=== PATIENT | male | born 1975 | race Caucasian/White ===

== ENCOUNTER 2016-04-10 23:26 | Emergency (ER) | payer OTHER ==
[~2016-04-10] VITALS: Ht 185.4 cm; Wt 70.5 kg
[~2016-04-10 23:26] MED LIST: AMBIEN 10MG10 MG PO; ANAPROX DS550 MG PO; CARAFATE1 GM/10 ML PO; CEFTIN250 MG PO; CELEBREX 200MG200 MG PO; CYCLOBENZAPRINE10 MG PO; DESYREL 100MG100 MG PO; DEXALONE30 MG PO; DEXILANT; DEXILANT60 MG PO; DOXYCYCLINE 10100 MG PO; DYNACIN50 M1 PO; FLEXERIL 1010 MG/TAB PO; FLOMAX 0.40.4 MG/CAP PO; IBUPAIN-200200 MG PO; IBUPROFEN; INDERAL40 MG PO; KAPIDEX; LEVAQUIN 750MG750 M1 PO; LORTAB 5/500 501 TAB PO; MOBIC 7.5MG7.5 MG PO; MULTI VITAMINS1 TAB PO; MULTIPLE VITAMI1 CAP PO; NEURONTIN300 MG/CAP PO; NEURONTIN600 MG/TAB PO; NEXIUM40 MG PO; NORCO 325 MG-101 TAB PO; NORCO 325 MG-51 TAB PO; PAIN RELIEF AD200 MG PO; PEPCID 20MG TAB20 MG PO; PERCOCET 325 MG1 TA2 PO; PERCOCET 5/321 UDTAB PO; PHENERGAN 25 TA25 MG PO; PHENERGAN25 MG RC; PREDNISONE10 MG; PRILOSEC 20MG20 MG PO; PROPRANOLOL HCL40 MG PO; PROSCAR 5MG5 MG PO; TEFLARO 60600 MG/VIA IV; TYLENOL 500MG500 MG PO; TYLENOL EXTRA500 M1 PO; TYLENOL PM; ULTRAM 50MG TAB50 MG PO; VICODIN PO; ZANTAC 7575 MG PO; ZOFRAN 4MG T4 MG/TAB PO; ZOFRAN ODT8 MG PO; ZOFRAN8 MG PO
[2016-04-10 23:35] VITALS: TEMP 98.8
[2016-04-11 00:09] LABS: BASO % 0.2 % (0.0-2.0); EOS # 0.6 (0.0-0.7); EOS % 2.9 % (0-4.0); GRAN # 12.9 (1.4-6.5); GRAN % 68.8 % (42.2-75.2); HEMOGLOBIN 12.2 g/dl (13.5-18.0); LYMPH # 4.1 (1.2-3.4); MEAN CELL VOLUME 102 fl (80.0-100.0); MEAN CORPUSCULAR HEMOGLOBIN 36 pg (27.0-31.0); MEAN CORPUSCULAR HGB CONC 35 g/dl (33.0-37.0); MEAN PLATELET VOLUME 9.2 fl (7.4-10.4); MONO # 1.1 (0.1-0.6); MONO % 5.7 % (1.7-9.3); PLATELET COUNT 301 K/mm3 (130-400); RED BLOOD COUNT 3.44 M/mm3 (4.20-5.60); REDCELL DISTRIBUTION WIDTH-CV 11.9 % (11.5-14.5); WHITE BLOOD COUNT 18.7 K/mm3 (4.8-10.8)
[2016-04-11 00:17] LABS: HEMATOCRIT 34.9 % (42.0-52.0)
[2016-04-11 00:36] LABS: ADJUSTED CALCIUM 9.7 mg/dL (8.4-10.2); ALANINE AMINOTRANSFERASE 26 U/L (21-72); ALBUMIN 3.5 gm/dL (3.5-5.0); ALKALINE PHOSPHATASE 58 U/L (50-136); ANION GAP 8 mmol/L (7-16); BILIRUBIN,TOTAL 0.7 mg/dL (0.0-1.0); BLOOD UREA NITROGEN 7 mg/dL (9-20); CALCIUM 9.3 mg/dL (8.4-10.2); CARBON DIOXIDE 27 mmol/L (22-30); CHLORIDE 105 mmol/L (98-107); GLUCOSE 104 mg/dL (74-106); POTASSIUM 3.5 mmol/L (3.4-5.0); SODIUM 140 mmol/L (137-145); TOTAL PROTEIN 6.5 gm/dL (6.4-8.2)
[2016-04-11 00:47] LABS: TROPONIN-I < 0.012 ng/mL (0.000-0.034)
[2016-04-11 01:49] LABS: PH 6 (5-8); SQUAMOUS EPITHELIAL 0-2 /hpf; URINE APPEARANCE Clear; URINE BACTERIA None Seen /hpf; URINE BILIRUBIN Negative (NEGATIVE); URINE BLOOD Negative (NEGATIVE); URINE COLOR Yellow; URINE GLUCOSE Negative (NEGATIVE); URINE KETONE Negative (NEGATIVE); URINE RBC None Seen /hpf; URINE UROBILINOGEN Negative (NEGATIVE); URINE WBC 0-2 /hpf
[2016-04-11 02:00] VITALS: PULSE 68
[2016-04-11] MEDS ORDERED: ALDACTONE50 MG PO (02:09)
[2016-04-11] MEDS ORDERED: PERCOCET 325 MG1 TA3 PO (02:10)
[2016-04-11 03:12] VITALS: BP 132/74
[2016-04-12] MEDS ORDERED: MOTRIN 800800 MG/TAB PO (22:05)
[2016-04-12] MEDS ORDERED: CEPHALEXIN500 M1 PO (23:46)
== END 2016-04-11 03:12 | disposition home or self-care (01) ==
LOC: COL.ER 23:26
PROVIDERS: Emergency Medicine
DX: G89.18 Other acute postprocedural pain (principal); Z90.79 Acquired absence of other genital organ(s); I45.10 Unspecified right bundle-branch block
CPT/HCPCS: J1170; J1885; J2550; J7030

== ENCOUNTER 2016-04-12 21:59 | Emergency (ER) | payer OTHER ==
[~2016-04-12] VITALS: Ht 193 cm; Wt 70.5 kg
[~2016-04-12 21:59] MED LIST changes: +ALDACTONE50 MG PO; +PERCOCET 325 MG1 TA3 PO
[2016-04-12 22:00] VITALS: TEMP 98.9
[2016-04-12] MEDS ORDERED: MOTRIN 800800 MG/TAB PO (22:05)
[2016-04-12 22:45] LABS: BASO % 0.3 % (0.0-2.0); EOS # 0.5 (0.0-0.7); EOS % 3.9 % (0-4.0); GRAN # 6.5 (1.4-6.5); GRAN % 55.2 % (42.2-75.2); HEMATOCRIT 31.6 % (42.0-52.0); HEMOGLOBIN 10.9 g/dl (13.5-18.0); LYMPH # 3.8 (1.2-3.4); LYMPH % 32.8 % (20.0-51.0); MEAN CELL VOLUME 102 fl (80.0-100.0); MEAN CORPUSCULAR HEMOGLOBIN 35 pg (27.0-31.0); MEAN CORPUSCULAR HGB CONC 35 g/dl (33.0-37.0); MONO # 0.9 (0.1-0.6); MONO % 7.6 % (1.7-9.3); PLATELET COUNT 283 K/mm3 (130-400); RED BLOOD COUNT 3.11 M/mm3 (4.20-5.60); REDCELL DISTRIBUTION WIDTH-CV 11.8 % (11.5-14.5); WHITE BLOOD COUNT 11.7 K/mm3 (4.8-10.8)
[2016-04-12 22:58] LABS: ADJUSTED CALCIUM 9.8 mg/dL (8.4-10.2); ALANINE AMINOTRANSFERASE 29 U/L (21-72); ALBUMIN 3.2 gm/dL (3.5-5.0); ALKALINE PHOSPHATASE 45 U/L (50-136); ANION GAP 6 mmol/L (7-16); BILIRUBIN,TOTAL 0.6 mg/dL (0.0-1.0); BLOOD UREA NITROGEN 7 mg/dL (9-20); CALCIUM 9.2 mg/dL (8.4-10.2); CARBON DIOXIDE 26 mmol/L (22-30); CHLORIDE 102 mmol/L (98-107); CREATININE, serum 1.08 mg/dL (0.66-1.25); GLUCOSE 88 mg/dL (74-106); POTASSIUM 3.6 mmol/L (3.4-5.0); SODIUM 134 mmol/L (137-145)
[2016-04-12 23:04] LABS: C-REACTIVE PROTEIN < 0.5 mg/dL (0.0-0.9)
[2016-04-12] MEDS ORDERED: CEPHALEXIN500 M1 PO (23:46)
[2016-04-12 23:54] VITALS: BP 124/60; PULSE 82
== END 2016-04-12 23:57 | disposition home or self-care (01) ==
LOC: COL.ER 21:59
PROVIDERS: Nurse Practitioner
DX: G89.18 Other acute postprocedural pain (principal); Z90.79 Acquired absence of other genital organ(s)
CPT/HCPCS: J2270; J2550; J7030

== ENCOUNTER 2016-06-07 23:56 | Emergency (ER) | payer OTHER ==
[~2016-06-07] VITALS: Ht 193 cm; Wt 72.7 kg
[~2016-06-07 23:56] MED LIST changes: +CEPHALEXIN500 M1 PO; +MOTRIN 800800 MG/TAB PO
[2016-06-08] MEDS ORDERED: ZANTAC 7575 MG PO (00:07)
[2016-06-08 00:29] VITALS: TEMP 98.1
[2016-06-08 00:42] LABS: BASO # 0.1 (0.0-0.2); BASO % 0.5 % (0.0-2.0); EOS # 0.3 (0.0-0.7); EOS % 2.8 % (0-4.0); GRAN # 4.2 (1.4-6.5); GRAN % 43.3 % (42.2-75.2); HEMOGLOBIN 12.1 g/dl (13.5-18.0); LYMPH # 4.4 (1.2-3.4); LYMPH % 45.5 % (20.0-51.0); MEAN CELL VOLUME 100 fl (80.0-100.0); MEAN CORPUSCULAR HEMOGLOBIN 35 pg (27.0-31.0); MEAN CORPUSCULAR HGB CONC 35 g/dl (33.0-37.0); MEAN PLATELET VOLUME 9.2 fl (7.4-10.4); MONO # 0.8 (0.1-0.6); MONO % 7.7 % (1.7-9.3); PLATELET COUNT 272 K/mm3 (130-400); RED BLOOD COUNT 3.49 M/mm3 (4.20-5.60); REDCELL DISTRIBUTION WIDTH-CV 11.8 % (11.5-14.5); WHITE BLOOD COUNT 9.7 K/mm3 (4.8-10.8)
[2016-06-08 00:45] LABS: HEMATOCRIT 34.9 % (42.0-52.0)
[2016-06-08 00:48] LABS: PH 6 (5-8); SQUAMOUS EPITHELIAL 0-2 /hpf; URINE APPEARANCE Clear; URINE BACTERIA None Seen /hpf; URINE BILIRUBIN Negative (NEGATIVE); URINE BLOOD Negative (NEGATIVE); URINE COLOR Straw; URINE GLUCOSE Negative (NEGATIVE); URINE KETONE Negative (NEGATIVE); URINE RBC 0-2 /hpf; URINE UROBILINOGEN Negative (NEGATIVE); URINE WBC 0-2 /hpf
[2016-06-08 00:52] LABS: ADJUSTED CALCIUM 9.4 mg/dL (8.4-10.2); ALBUMIN 3.2 gm/dL (3.5-5.0); BILIRUBIN,TOTAL 0.6 mg/dL (0.0-1.0); CALCIUM 8.8 mg/dL (8.4-10.2); POTASSIUM 3.6 mmol/L (3.4-5.0)
[2016-06-08] MEDS ORDERED: ULTRAM 50MG TAB50 MG PO (02:25)
[2016-06-08] MEDS ORDERED: PHENERGAN 25 TA25 MG PO (02:26)
[2016-06-08 02:36] VITALS: BP 106/65; PULSE 62
== END 2016-06-08 03:11 | disposition home or self-care (01) ==
LOC: COL.ER 23:56
PROVIDERS: Emergency Medicine
DX: E86.9 Volume depletion, unspecified (principal); R10.13 Epigastric pain; R10.31 Right lower quadrant pain; R10.32 Left lower quadrant pain; R11.10 Vomiting, unspecified; R19.7 Diarrhea, unspecified
CPT/HCPCS: J1170; J2405; J2550; J7030

== ENCOUNTER 2016-07-12 22:40 | Emergency (ER) | payer OTHER ==
[~2016-07-12] VITALS: Ht 193 cm; Wt 72.7 kg
[2016-07-12 22:46] VITALS: TEMP 98.2
[2016-07-12] MEDS ORDERED: ZANTAC 7575 MG PO (22:49)
[2016-07-12 23:21] LABS: BASO # 0.1 (0.0-0.2); BASO % 0.5 % (0.0-2.0); EOS # 0.5 (0.0-0.7); GRAN % 43.4 % (42.2-75.2); HEMATOCRIT 33.3 % (42.0-52.0); HEMOGLOBIN 11.6 g/dl (13.5-18.0); LYMPH % 42.9 % (20.0-51.0); MEAN CELL VOLUME 100 fl (80.0-100.0); MEAN CORPUSCULAR HEMOGLOBIN 35 pg (27.0-31.0); MEAN CORPUSCULAR HGB CONC 35 g/dl (33.0-37.0); MEAN PLATELET VOLUME 9.3 fl (7.4-10.4); MONO # 0.8 (0.1-0.6); MONO % 8.1 % (1.7-9.3); PLATELET COUNT 273 K/mm3 (130-400); RED BLOOD COUNT 3.33 M/mm3 (4.20-5.60); WHITE BLOOD COUNT 9.2 K/mm3 (4.8-10.8)
[2016-07-12 23:32] LABS: ADJUSTED CALCIUM 9.5 mg/dL (8.4-10.2); ALBUMIN 3.4 gm/dL (3.5-5.0); BILIRUBIN,TOTAL 0.6 mg/dL (0.0-1.0); CREATININE, serum 0.9 mg/dL (0.66-1.25); POTASSIUM 3.8 mmol/L (3.4-5.0); TOTAL PROTEIN 6.1 gm/dL (6.4-8.2)
[2016-07-13 01:17] LABS: PH 6 (5-8); SQUAMOUS EPITHELIAL 0-2 /hpf; URINE APPEARANCE Clear; URINE BACTERIA None Seen /hpf; URINE BILIRUBIN Negative (NEGATIVE); URINE BLOOD Negative (NEGATIVE); URINE COLOR Yellow; URINE GLUCOSE Negative (NEGATIVE); URINE KETONE Negative (NEGATIVE); URINE RBC None Seen /hpf; URINE UROBILINOGEN Negative (NEGATIVE); URINE WBC 0-2 /hpf
[2016-07-13 02:02] VITALS: BP 105/67; PULSE 62
== END 2016-07-13 02:15 | disposition home or self-care (01) ==
LOC: COL.ER 22:40
PROVIDERS: Emergency Medicine
DX: R10.31 Right lower quadrant pain (principal); R29.898 Other symptoms and signs involving the musculoskeletal system; R11.0 Nausea; K21.9 Gastro-esophageal reflux disease without esophagitis; G43.909 Migraine, unspecified, not intractable, without status migrainosus; G89.29 Other chronic pain; M25.561 Pain in right knee; M25.551 Pain in right hip; Z79.891 Long term (current) use of opiate analgesic
CPT/HCPCS: J1170; J1885; J2550; J3010; J7030

== ENCOUNTER 2016-07-13 20:53 | Emergency (ER) | payer OTHER ==
[~2016-07-13] VITALS: Ht 193 cm; Wt 72.7 kg
[2016-07-13 20:58] VITALS: TEMP 98
[2016-07-13 21:36] LABS: BASO # 0.1 (0.0-0.2); BASO % 0.7 % (0.0-2.0); EOS # 0.7 (0.0-0.7); EOS % 7.5 % (0-4.0); GRAN # 4.3 (1.4-6.5); GRAN % 45.2 % (42.2-75.2); LYMPH # 3.7 (1.2-3.4); LYMPH % 39.2 % (20.0-51.0); MEAN CELL VOLUME 102 fl (80.0-100.0); MEAN CORPUSCULAR HGB CONC 34 g/dl (33.0-37.0); MEAN PLATELET VOLUME 9.1 fl (7.4-10.4); MONO # 0.7 (0.1-0.6); MONO % 7.2 % (1.7-9.3); PLATELET COUNT 249 K/mm3 (130-400); RED BLOOD COUNT 3.28 M/mm3 (4.20-5.60); REDCELL DISTRIBUTION WIDTH-CV 12.4 % (11.5-14.5); WHITE BLOOD COUNT 9.5 K/mm3 (4.8-10.8)
[2016-07-13 21:45] LABS: ADJUSTED CALCIUM 9.8 mg/dL (8.4-10.2); ALBUMIN 3.1 gm/dL (3.5-5.0); BILIRUBIN,TOTAL 0.5 mg/dL (0.0-1.0); CALCIUM 9.1 mg/dL (8.4-10.2); CREATININE, serum 0.85 mg/dL (0.66-1.25); TOTAL PROTEIN 5.5 gm/dL (6.4-8.2)
[2016-07-13 21:46] LABS: HEMATOCRIT 33.6 % (42.0-52.0); HEMOGLOBIN 11.3 g/dl (13.5-18.0); MEAN CORPUSCULAR HEMOGLOBIN 34 pg (27.0-31.0)
[2016-07-13 21:57] LABS: PH 5 (5-8); SQUAMOUS EPITHELIAL None Seen /hpf; URINE APPEARANCE Clear; URINE BACTERIA None Seen /hpf; URINE BILIRUBIN Negative (NEGATIVE); URINE BLOOD Negative (NEGATIVE); URINE COLOR Straw; URINE GLUCOSE Negative (NEGATIVE); URINE KETONE Negative (NEGATIVE); URINE RBC 0-2 /hpf; URINE UROBILINOGEN Negative (NEGATIVE); URINE WBC 0-2 /hpf
[2016-07-13 22:35] VITALS: BP 115/79; PULSE 77
== END 2016-07-13 22:38 | disposition home or self-care (01) ==
LOC: COL.ER 20:53
PROVIDERS: Emergency Medicine
DX: R10.31 Right lower quadrant pain (principal); R10.11 Right upper quadrant pain; Z87.442 Personal history of urinary calculi; G89.29 Other chronic pain
CPT/HCPCS: J1170; J2765; J3010; J7030

== ENCOUNTER 2016-07-22 01:11 | Emergency (ER) | payer OTHER ==
[~2016-07-22] VITALS: Ht 193 cm; Wt 75.0 kg
[2016-07-22 01:11] VITALS: TEMP 97.4
[2016-07-22 01:34] LABS: BASO % 0.4 % (0.0-2.0); EOS # 0.8 (0.0-0.7); GRAN # 4.5 (1.4-6.5); GRAN % 44.3 % (42.2-75.2); HEMATOCRIT 32.6 % (42.0-52.0); MEAN CELL VOLUME 103 fl (80.0-100.0); MEAN CORPUSCULAR HEMOGLOBIN 35 pg (27.0-31.0); MEAN CORPUSCULAR HGB CONC 34 g/dl (33.0-37.0); MEAN PLATELET VOLUME 9.2 fl (7.4-10.4); MONO # 0.7 (0.1-0.6); MONO % 7.1 % (1.7-9.3); PLATELET COUNT 247 K/mm3 (130-400); RED BLOOD COUNT 3.17 M/mm3 (4.20-5.60); REDCELL DISTRIBUTION WIDTH-CV 12.3 % (11.5-14.5); WHITE BLOOD COUNT 10.1 K/mm3 (4.8-10.8)
[2016-07-22 01:45] LABS: ALANINE AMINOTRANSFERASE 36 U/L (21-72); ALBUMIN 3.3 gm/dL (3.5-5.0); ALKALINE PHOSPHATASE 50 U/L (50-136); ANION GAP 6 mmol/L (7-16); BILIRUBIN,TOTAL 0.5 mg/dL (0.0-1.0); BLOOD UREA NITROGEN 13 mg/dL (9-20); C-REACTIVE PROTEIN < 0.5 mg/dL (0.0-0.9); CALCIUM 8.4 mg/dL (8.4-10.2); CARBON DIOXIDE 28 mmol/L (22-30); CHLORIDE 103 mmol/L (98-107); GLUCOSE 87 mg/dL (74-106); POTASSIUM 4.3 mmol/L (3.4-5.0); SODIUM 136 mmol/L (137-145); TOTAL PROTEIN 5.8 gm/dL (6.4-8.2)
[2016-07-22 01:55] LABS: PH 6 (5-8); SQUAMOUS EPITHELIAL None Seen /hpf; URINE APPEARANCE Clear; URINE BACTERIA None Seen /hpf; URINE BILIRUBIN Negative (NEGATIVE); URINE BLOOD Negative (NEGATIVE); URINE COLOR Straw; URINE GLUCOSE Negative (NEGATIVE); URINE KETONE Negative (NEGATIVE); URINE RBC None Seen /hpf; URINE UROBILINOGEN Negative (NEGATIVE); URINE WBC None Seen /hpf
[2016-07-22 02:19] VITALS: BP 112/64; PULSE 68
== END 2016-07-22 02:19 | disposition home or self-care (01) ==
LOC: COL.ER 01:11
PROVIDERS: Physician Assistant
DX: R10.11 Right upper quadrant pain (principal); Z87.11 Personal history of peptic ulcer disease
CPT/HCPCS: J1885; J2405; J2550; J7030

== ENCOUNTER 2016-08-07 21:36 | Emergency (ER) | payer OTHER ==
[~2016-08-07] VITALS: Ht 185.4 cm; Wt 75.0 kg
[2016-08-07 21:38] VITALS: BP 134/80; TEMP 98.9
[2016-08-07] MEDS ORDERED: DESYREL 100MG100 MG PO (21:42)
[2016-08-07 22:47] VITALS: PULSE 68
== END 2016-08-07 22:48 | disposition home or self-care (01) ==
LOC: COL.ER 21:36
DX: S40.012A Contusion of left shoulder, initial encounter (principal); K21.9 Gastro-esophageal reflux disease without esophagitis; F17.290 Nicotine dependence, other tobacco product, uncomplicated; Z98.890 Other specified postprocedural states; Z90.49 Acquired absence of other specified parts of digestive tract; W18.39XA Other fall on same level, initial encounter

== ENCOUNTER 2016-10-11 02:10 | Emergency (ER) | payer OTHER ==
[~2016-10-11] VITALS: Ht 193 cm; Wt 72.7 kg
[2016-10-11 02:13] VITALS: TEMP 97.9
[2016-10-11] MEDS ORDERED: ESTRACE 1MG1 MG/TAB PO (02:24)
[2016-10-11] MEDS ORDERED: ENDOMETRIN100 MG VG (02:25)
[2016-10-11 03:05] LABS: BASO # 0.1 (0.0-0.2); BASO % 0.7 % (0.0-2.0); EOS # 0.6 (0.0-0.7); EOS % 4.8 % (0-4.0); GRAN # 6.5 (1.4-6.5); GRAN % 49.6 % (42.2-75.2); HEMATOCRIT 33.8 % (42.0-52.0); HEMOGLOBIN 11.5 g/dl (13.5-18.0); LYMPH # 4.8 (1.2-3.4); LYMPH % 36.7 % (20.0-51.0); MEAN CELL VOLUME 103 fl (80.0-100.0); MEAN CORPUSCULAR HEMOGLOBIN 35 pg (27.0-31.0); MEAN CORPUSCULAR HGB CONC 34 g/dl (33.0-37.0); MEAN PLATELET VOLUME 9.1 fl (7.4-10.4); MONO # 1.1 (0.1-0.6); PLATELET COUNT 242 K/mm3 (130-400); RED BLOOD COUNT 3.27 M/mm3 (4.20-5.60); REDCELL DISTRIBUTION WIDTH-CV 12.3 % (11.5-14.5); WHITE BLOOD COUNT 13.1 K/mm3 (4.8-10.8)
[2016-10-11 03:11] VITALS: PULSE 63
[2016-10-11 03:14] LABS: ADJUSTED CALCIUM 9.1 mg/dL (8.4-10.2); ALBUMIN 3.3 gm/dL (3.5-5.0); BILIRUBIN,TOTAL 0.4 mg/dL (0.0-1.0); CALCIUM 8.5 mg/dL (8.4-10.2); CREATININE, serum 1.11 mg/dL (0.66-1.25); MAGNESIUM 1.8 mg/dL (1.6-2.3); PHOSPHOROUS 3.4 mg/dL (2.5-4.5); POTASSIUM 3.7 mmol/L (3.4-5.0); TOTAL PROTEIN 5.7 gm/dL (6.4-8.2)
[2016-10-11 05:41] VITALS: BP 99/62
== END 2016-10-11 05:49 | disposition home or self-care (01) ==
LOC: COL.ER 02:10
PROVIDERS: Emergency Medicine
DX: G43.909 Migraine, unspecified, not intractable, without status migrainosus (principal); R55 Syncope and collapse; F17.200 Nicotine dependence, unspecified, uncomplicated; I45.10 Unspecified right bundle-branch block
CPT/HCPCS: J1200; J1885; J2550; J7030

== ENCOUNTER 2016-10-19 20:32 | Emergency (ER) | payer OTHER ==
[~2016-10-19] VITALS: Ht 193 cm; Wt 72.7 kg
[~2016-10-19 20:32] MED LIST changes: +ENDOMETRIN100 MG VG; +ESTRACE 1MG1 MG/TAB PO
[2016-10-19 20:38] VITALS: TEMP 98.2
[2016-10-19 21:40] LABS: BASO # 0.1 (0.0-0.2); BASO % 0.5 % (0.0-2.0); EOS # 0.4 (0.0-0.7); EOS % 3.4 % (0-4.0); GRAN # 6.1 (1.4-6.5); GRAN % 54.1 % (42.2-75.2); HEMATOCRIT 35.7 % (42.0-52.0); HEMOGLOBIN 12.3 g/dl (13.5-18.0); LYMPH # 3.9 (1.2-3.4); LYMPH % 34.4 % (20.0-51.0); MEAN CELL VOLUME 102 fl (80.0-100.0); MEAN CORPUSCULAR HEMOGLOBIN 35 pg (27.0-31.0); MEAN CORPUSCULAR HGB CONC 35 g/dl (33.0-37.0); MEAN PLATELET VOLUME 9.3 fl (7.4-10.4); MONO # 0.8 (0.1-0.6); MONO % 7.3 % (1.7-9.3); PLATELET COUNT 274 K/mm3 (130-400); RED BLOOD COUNT 3.51 M/mm3 (4.20-5.60); REDCELL DISTRIBUTION WIDTH-CV 12.4 % (11.5-14.5); WHITE BLOOD COUNT 11.2 K/mm3 (4.8-10.8)
[2016-10-19 21:52] LABS: ALANINE AMINOTRANSFERASE 20 U/L (21-72); ALBUMIN 3.9 gm/dL (3.5-5.0); ALKALINE PHOSPHATASE 51 U/L (50-136); ANION GAP 6 mmol/L (7-16); BILIRUBIN,TOTAL 0.6 mg/dL (0.0-1.0); BLOOD UREA NITROGEN 10 mg/dL (9-20); CALCIUM 8.9 mg/dL (8.4-10.2); CARBON DIOXIDE 25 mmol/L (22-30); CHLORIDE 104 mmol/L (98-107); CREATININE, serum 1.15 mg/dL (0.66-1.25); GLUCOSE 82 mg/dL (74-106); LIPASE 149 U/L (23-300); POTASSIUM 4.3 mmol/L (3.4-5.0); SODIUM 135 mmol/L (137-145); TOTAL PROTEIN 6.6 gm/dL (6.4-8.2)
[2016-10-19 21:54] LABS: C-REACTIVE PROTEIN < 0.5 mg/dL (0.0-0.9)
[2016-10-19 22:01] LABS: TROPONIN-I < 0.012 ng/mL (0.000-0.034)
[2016-10-19 23:32] VITALS: BP 116/70; PULSE 76
== END 2016-10-19 23:30 | disposition home or self-care (01) ==
LOC: COL.ER 20:32
PROVIDERS: Emergency Medicine
DX: R07.9 Chest pain, unspecified (principal); M54.5 Low back pain; G89.29 Other chronic pain; F17.200 Nicotine dependence, unspecified, uncomplicated; W18.2XXA Fall in (into) shower or empty bathtub, initial encounter
CPT/HCPCS: J1170; J2405; J7030

== ENCOUNTER 2016-11-01 01:48 | Emergency (ER) | payer OTHER ==
[~2016-11-01] VITALS: Ht 193 cm; Wt 75.0 kg
[2016-11-01 01:51] VITALS: BP 102/67; TEMP 98
[2016-11-01 02:41] VITALS: PULSE 80
== END 2016-11-01 02:48 | disposition home or self-care (01) ==
LOC: COL.ER 01:48
DX: G89.29 Other chronic pain (principal); M54.5 Low back pain; F17.210 Nicotine dependence, cigarettes, uncomplicated; Z86.39 Personal history of other endocrine, nutritional and metabolic disease; Z87.11 Personal history of peptic ulcer disease
CPT/HCPCS: J1885; J3360

== ENCOUNTER 2016-11-23 20:17 | Emergency (ER) | payer OTHER ==
[~2016-11-23] VITALS: Ht 193 cm; Wt 75.0 kg
[2016-11-23 20:21] VITALS: TEMP 98.1
[2016-11-23 21:11] LABS: BASO # 0.1 (0.0-0.2); BASO % 0.8 % (0.0-2.0); EOS # 0.3 (0.0-0.7); EOS % 4.3 % (0-4.0); GRAN % 37.8 % (42.2-75.2); LYMPH # 3.8 (1.2-3.4); LYMPH % 48.4 % (20.0-51.0); MEAN CELL VOLUME 100 fl (80.0-100.0); MEAN CORPUSCULAR HEMOGLOBIN 34 pg (27.0-31.0); MEAN CORPUSCULAR HGB CONC 35 g/dl (33.0-37.0); MEAN PLATELET VOLUME 9.4 fl (7.4-10.4); MONO # 0.7 (0.1-0.6); MONO % 8.6 % (1.7-9.3); PLATELET COUNT 264 K/mm3 (130-400); RED BLOOD COUNT 3.49 M/mm3 (4.20-5.60); REDCELL DISTRIBUTION WIDTH-CV 11.6 % (11.5-14.5); WHITE BLOOD COUNT 7.9 K/mm3 (4.8-10.8)
[2016-11-23 21:17] LABS: HEMATOCRIT 34.8 % (42.0-52.0)
[2016-11-23 21:28] LABS: ADJUSTED CALCIUM 9.2 mg/dL (8.4-10.2); ALANINE AMINOTRANSFERASE 65 U/L (21-72); ALBUMIN 3.7 gm/dL (3.5-5.0); ALKALINE PHOSPHATASE 57 U/L (50-136); ANION GAP 6 mmol/L (7-16); BILIRUBIN,TOTAL 0.7 mg/dL (0.0-1.0); BLOOD UREA NITROGEN 5 mg/dL (9-20); CARBON DIOXIDE 26 mmol/L (22-30); CHLORIDE 103 mmol/L (98-107); CREATININE, serum 0.98 mg/dL (0.66-1.25); GLUCOSE 76 mg/dL (74-106); LIPASE 31 U/L (23-300); POTASSIUM 3.9 mmol/L (3.4-5.0); SODIUM 135 mmol/L (137-145); TOTAL PROTEIN 6.4 gm/dL (6.4-8.2)
[2016-11-23 21:31] LABS: C-REACTIVE PROTEIN < 0.5 mg/dL (0.0-0.9)
[2016-11-23 22:06] LABS: PH 5 (5-8); SQUAMOUS EPITHELIAL 0-2 /hpf; URINE APPEARANCE Clear; URINE BACTERIA Rare /hpf; URINE BILIRUBIN Negative (NEGATIVE); URINE BLOOD Negative (NEGATIVE); URINE COLOR Yellow; URINE GLUCOSE Negative (NEGATIVE); URINE KETONE Negative (NEGATIVE); URINE RBC 0-2 /hpf; URINE UROBILINOGEN Negative (NEGATIVE); URINE WBC 0-2 /hpf
[2016-11-23 22:34] VITALS: BP 122/51; PULSE 84
== END 2016-11-23 23:00 | disposition home or self-care (01) ==
LOC: COL.ER 20:17
PROVIDERS: Emergency Medicine
DX: R11.10 Vomiting, unspecified (principal); R10.9 Unspecified abdominal pain; R19.7 Diarrhea, unspecified; G43.909 Migraine, unspecified, not intractable, without status migrainosus; Z90.49 Acquired absence of other specified parts of digestive tract; Z79.1 Long term (current) use of non-steroidal anti-inflammatories (NSAID)
CPT/HCPCS: J1200; J2060; J2550; J7030; J7040

== ENCOUNTER 2016-12-06 22:03 | Emergency (ER) | payer OTHER ==
[~2016-12-06] VITALS: Ht 193 cm; Wt 72.7 kg
[2016-12-06 22:08] VITALS: BP 116/62; TEMP 98.2
[2016-12-07 01:49] LABS: HEMATOCRIT 37.7 % (42.0-52.0); MEAN CELL VOLUME 101 fl (80.0-100.0); MEAN CORPUSCULAR HEMOGLOBIN 35 pg (27.0-31.0); MEAN CORPUSCULAR HGB CONC 35 g/dl (33.0-37.0); MEAN PLATELET VOLUME 9.3 fl (7.4-10.4); PLATELET COUNT 268 K/mm3 (130-400); RED BLOOD COUNT 3.73 M/mm3 (4.20-5.60); REDCELL DISTRIBUTION WIDTH-CV 11.5 % (11.5-14.5)
[2016-12-07 01:55] LABS: PH 6 (5-8); SQUAMOUS EPITHELIAL 0-2 /hpf; URINE APPEARANCE Clear; URINE BACTERIA None Seen /hpf; URINE BILIRUBIN Negative (NEGATIVE); URINE BLOOD Negative (NEGATIVE); URINE COLOR Straw; URINE GLUCOSE Negative (NEGATIVE); URINE KETONE Negative (NEGATIVE); URINE RBC 0-2 /hpf; URINE UROBILINOGEN Negative (NEGATIVE); URINE WBC 0-2 /hpf
[2016-12-07 02:00] LABS: ADJUSTED CALCIUM 9.1 mg/dL (8.4-10.2); BILIRUBIN,TOTAL 0.4 mg/dL (0.0-1.0); CALCIUM 9.1 mg/dL (8.4-10.2); CREATININE, serum 0.98 mg/dL (0.66-1.25); TOTAL PROTEIN 6.8 gm/dL (6.4-8.2)
[2016-12-07 02:01] LABS: WHITE BLOOD COUNT 20.1 K/mm3 (4.8-10.8)
[2016-12-07 02:02] LABS: ADD PATHOLOGY DIFF REVIEW NO
[2016-12-07 02:36] LABS: BAND 7 % (0-10); EOSINOPHIL 4 % (0-4); NEUTROPHILS 62 % (42.0-75.2); PLATELET ESTIMATE NORMAL (NORMAL); TOTAL CELLS COUNTED 100
[2016-12-07 03:25] VITALS: PULSE 80
[2016-12-08] MEDS ORDERED: PEN-VEE K500 MG PO (22:37)
== END 2016-12-07 03:26 | disposition home or self-care (01) ==
LOC: COL.ER 22:03
PROVIDERS: Emergency Medicine
DX: R10.31 Right lower quadrant pain (principal); D72.829 Elevated white blood cell count, unspecified; G89.29 Other chronic pain
CPT/HCPCS: J1885; J2765

== ENCOUNTER 2016-12-08 21:16 | Emergency (ER) | payer OTHER ==
[~2016-12-08] VITALS: Ht 193 cm; Wt 72.7 kg
[2016-12-08 21:19] VITALS: TEMP 97.7
[2016-12-08] MEDS ORDERED: PEN-VEE K500 MG PO (22:37)
[2016-12-08 23:06] VITALS: BP 107/62; PULSE 70
== END 2016-12-08 23:08 | disposition home or self-care (01) ==
LOC: COL.ER 21:16
DX: K08.89 Other specified disorders of teeth and supporting structures (principal); G43.909 Migraine, unspecified, not intractable, without status migrainosus; F17.210 Nicotine dependence, cigarettes, uncomplicated

== ENCOUNTER 2017-03-31 00:30 | Emergency (ER) | payer OTHER ==
[~2017-03-31] VITALS: Ht 193 cm; Wt 79.5 kg
[~2017-03-31 00:30] MED LIST changes: +PEN-VEE K500 MG PO
[2017-03-31 00:37] VITALS: TEMP 99
[2017-03-31 01:13] LABS: BASO # 0.1 (0.0-0.2); BASO % 0.8 % (0.0-2.0); EOS # 0.5 (0.0-0.7); EOS % 5.8 % (0-4.0); GRAN # 3.9 (1.4-6.5); LYMPH # 3.6 (1.2-3.4); LYMPH % 40.7 % (20.0-51.0); MEAN CELL VOLUME 99 fl (80.0-100.0); MEAN CORPUSCULAR HEMOGLOBIN 35 pg (27.0-31.0); MEAN CORPUSCULAR HGB CONC 35 g/dl (33.0-37.0); MEAN PLATELET VOLUME 9.3 fl (7.4-10.4); MONO # 0.8 (0.1-0.6); MONO % 8.5 % (1.7-9.3); PLATELET COUNT 245 K/mm3 (130-400); RED BLOOD COUNT 3.48 M/mm3 (4.20-5.60); REDCELL DISTRIBUTION WIDTH-CV 12.3 % (11.5-14.5)
[2017-03-31 01:14] LABS: HEMATOCRIT 34.3 % (42.0-52.0)
[2017-03-31 01:26] LABS: ALANINE AMINOTRANSFERASE 37 U/L (21-72); ALBUMIN 3.5 gm/dL (3.5-5.0); ALKALINE PHOSPHATASE 71 U/L (50-136); ANION GAP 5 mmol/L (7-16); AST,SGOT 16 U/L (15-37); BILIRUBIN,TOTAL 0.3 mg/dL (0.0-1.0); BLOOD UREA NITROGEN 12 mg/dL (9-20); CALCIUM 8.9 mg/dL (8.4-10.2); CARBON DIOXIDE 25 mmol/L (22-30); CHLORIDE 107 mmol/L (98-107); CREATININE, serum 0.89 mg/dL (0.66-1.25); GLUCOSE 86 mg/dL (74-106); LIPASE 78 U/L (23-300); POTASSIUM 3.9 mmol/L (3.4-5.0); SODIUM 137 mmol/L (137-145); TOTAL PROTEIN 6.3 gm/dL (6.4-8.2)
[2017-03-31 01:34] LABS: C-REACTIVE PROTEIN < 0.5 mg/dL (0.0-0.9)
[2017-03-31 03:12] LABS: COLLECTION METHOD CLEAN CATCH
[2017-03-31 03:19] LABS: MUCOUS Present /lpf; PH 6 (5-8); SQUAMOUS EPITHELIAL 0-2 /hpf; URINE APPEARANCE Clear; URINE BACTERIA None Seen /hpf; URINE BILIRUBIN Negative (NEGATIVE); URINE BLOOD Negative (NEGATIVE); URINE COLOR Yellow; URINE GLUCOSE Negative (NEGATIVE); URINE KETONE Negative (NEGATIVE); URINE LEUKOCYTE ESTERASE Negative (NEGATIVE); URINE NITRATE Negative (NEGATIVE); URINE PROTEIN(semi-quant) Negative (NEGATIVE); URINE RBC None Seen /hpf; URINE UROBILINOGEN Negative (NEGATIVE)
[2017-03-31] MEDS ORDERED: FLEXERIL 1010 MG/TAB PO (04:02)
[2017-03-31 04:31] VITALS: BP 111/73; PULSE 60
== END 2017-03-31 04:30 | disposition home or self-care (01) ==
LOC: COL.ER 00:30
PROVIDERS: Emergency Medicine
DX: R10.9 Unspecified abdominal pain (principal); G89.29 Other chronic pain; Z90.49 Acquired absence of other specified parts of digestive tract
CPT/HCPCS: J1170; J1885; J2550; J7030

== ENCOUNTER → 2017-04-14 | Emergency (ER) | payer OTHER ==
[~2017-04-14] VITALS: Ht 193 cm; Wt 77.3 kg
[2017-04-14 01:18] VITALS: BP 105/62; PULSE 79; TEMP 97.7
[2017-04-14 02:47] LABS: BASO # 0.1 (0.0-0.2); BASO % 0.6 % (0.0-2.0); EOS # 0.7 (0.0-0.7); GRAN # 7.9 (1.4-6.5); GRAN % 54.6 % (42.2-75.2); HEMOGLOBIN 12.5 g/dl (13.5-18.0); LYMPH # 4.6 (1.2-3.4); LYMPH % 31.5 % (20.0-51.0); MEAN CELL VOLUME 98 fl (80.0-100.0); MEAN CORPUSCULAR HEMOGLOBIN 34 pg (27.0-31.0); MEAN CORPUSCULAR HGB CONC 35 g/dl (33.0-37.0); MEAN PLATELET VOLUME 9.3 fl (7.4-10.4); MONO # 1.2 (0.1-0.6); MONO % 8.1 % (1.7-9.3); PLATELET COUNT 259 K/mm3 (130-400); RED BLOOD COUNT 3.66 M/mm3 (4.20-5.60); REDCELL DISTRIBUTION WIDTH-CV 12.1 % (11.5-14.5)
[2017-04-14 02:48] LABS: HEMATOCRIT 35.9 % (42.0-52.0)
[2017-04-14 02:59] LABS: ALANINE AMINOTRANSFERASE 27 U/L (21-72); ALBUMIN 3.9 gm/dL (3.5-5.0); ALKALINE PHOSPHATASE 59 U/L (50-136); ANION GAP 5 mmol/L (7-16); AST,SGOT 17 U/L (15-37); BILIRUBIN,TOTAL 0.3 mg/dL (0.0-1.0); BLOOD UREA NITROGEN 10 mg/dL (9-20); C-REACTIVE PROTEIN < 0.5 mg/dL (0.0-0.9); CALCIUM 9.3 mg/dL (8.4-10.2); CARBON DIOXIDE 27 mmol/L (22-30); CHLORIDE 105 mmol/L (98-107); CREATININE, serum 0.93 mg/dL (0.66-1.25); GLUCOSE 93 mg/dL (74-106); SODIUM 137 mmol/L (137-145); TOTAL PROTEIN 6.6 gm/dL (6.4-8.2)
[2017-04-14 03:49] LABS: COLLECTION METHOD CLEAN CATCH
[2017-04-14 03:54] LABS: PH 6 (5-8); SQUAMOUS EPITHELIAL 0-2 /hpf; URINE APPEARANCE Clear; URINE BACTERIA None Seen /hpf; URINE BILIRUBIN Negative (NEGATIVE); URINE BLOOD Negative (NEGATIVE); URINE COLOR Straw; URINE GLUCOSE Negative (NEGATIVE); URINE KETONE Negative (NEGATIVE); URINE LEUKOCYTE ESTERASE Negative (NEGATIVE); URINE NITRATE Negative (NEGATIVE); URINE PROTEIN(semi-quant) Negative (NEGATIVE); URINE RBC 0-2 /hpf; URINE UROBILINOGEN Negative (NEGATIVE)
== END ==
LOC: COL.ER 01:12
PROVIDERS: Physician Assistant
DX: R10.9 Unspecified abdominal pain (principal); G89.29 Other chronic pain; Z79.1 Long term (current) use of non-steroidal anti-inflammatories (NSAID); Z88.8 Allergy status to other drugs, medicaments and biological substances
CPT/HCPCS: J1885

== ENCOUNTER 2017-06-06 13:05 | Emergency (ER) | payer OTHER ==
[~2017-06-06] VITALS: Ht 193 cm; Wt 81.8 kg
[2017-06-06 13:11] VITALS: BP 116/61; PULSE 73; TEMP 98.1
[2017-06-06] MEDS ORDERED: AMOXICILLIN 8751 TAB PO (14:32)
[2017-06-07] MEDS ORDERED: DOXYCYCLINE 10100 MG PO (04:18)
== END 2017-06-06 14:41 | disposition home or self-care (01) ==
LOC: COL.ER 13:05
DX: S50.812A Abrasion of left forearm, initial encounter (principal); F17.210 Nicotine dependence, cigarettes, uncomplicated; Z23 Encounter for immunization; W55.03XA Scratched by cat, initial encounter; Y92.009 Unspecified place in unspecified non-institutional (private) residence as the place of occurrence of the external cause

== ENCOUNTER 2017-06-07 01:51 | Emergency (ER) | payer OTHER ==
[~2017-06-07] VITALS: Ht 193 cm; Wt 79.5 kg
[~2017-06-07 01:51] MED LIST changes: +AMOXICILLIN 8751 TAB PO
[2017-06-07 01:57] VITALS: BP 142/64; TEMP 98.5
[2017-06-07 03:01] LABS: BASO # 0.1 (0.0-0.2); BASO % 0.5 % (0.0-2.0); EOS # 0.5 (0.0-0.7); EOS % 2.7 % (0-4.0); GRAN # 14.6 (1.4-6.5); GRAN % 73.7 % (42.2-75.2); HEMATOCRIT 35.8 % (42.0-52.0); HEMOGLOBIN 12.4 g/dl (13.5-18.0); LYMPH # 2.8 (1.2-3.4); LYMPH % 14.3 % (20.0-51.0); MEAN CELL VOLUME 99 fl (80.0-100.0); MEAN CORPUSCULAR HEMOGLOBIN 34 pg (27.0-31.0); MEAN CORPUSCULAR HGB CONC 35 g/dl (33.0-37.0); MEAN PLATELET VOLUME 9.5 fl (7.4-10.4); MONO # 1.6 (0.1-0.6); MONO % 8.3 % (1.7-9.3); PLATELET COUNT 243 K/mm3 (130-400); RED BLOOD COUNT 3.61 M/mm3 (4.20-5.60)
[2017-06-07] MEDS ORDERED: DOXYCYCLINE 10100 MG PO (04:18)
[2017-06-07 04:45] VITALS: PULSE 82
== END 2017-06-07 04:45 | disposition home or self-care (01) ==
LOC: COL.ER 01:51
PROVIDERS: Emergency Medicine
DX: S51.852A Open bite of left forearm, initial encounter (principal); W55.01XA Bitten by cat, initial encounter; Y92.009 Unspecified place in unspecified non-institutional (private) residence as the place of occurrence of the external cause
CPT/HCPCS: J2270; J7030

== ENCOUNTER 2017-06-07 20:20 | Emergency (ER) | payer OTHER ==
[~2017-06-07] VITALS: Ht 193 cm; Wt 81.8 kg
[2017-06-07 20:22] VITALS: BP 113/62; PULSE 80; TEMP 98.5
[2017-06-07 20:52] LABS: BASO % 0.2 % (0.0-2.0); EOS # 0.4 (0.0-0.7); EOS % 3.1 % (0-4.0); LYMPH # 2.7 (1.2-3.4); LYMPH % 21.9 % (20.0-51.0); MEAN CELL VOLUME 99 fl (80.0-100.0); MEAN CORPUSCULAR HGB CONC 34 g/dl (33.0-37.0); MEAN PLATELET VOLUME 9.2 fl (7.4-10.4); MONO % 8.5 % (1.7-9.3); PLATELET COUNT 224 K/mm3 (130-400); RED BLOOD COUNT 3.35 M/mm3 (4.20-5.60); REDCELL DISTRIBUTION WIDTH-CV 12.1 % (11.5-14.5)
[2017-06-07 20:56] LABS: HEMATOCRIT 33.3 % (42.0-52.0); HEMOGLOBIN 11.4 g/dl (13.5-18.0); MEAN CORPUSCULAR HEMOGLOBIN 34 pg (27.0-31.0)
[2017-06-07 21:08] LABS: ALBUMIN 3.3 gm/dL (3.5-5.0); BILIRUBIN,TOTAL 0.5 mg/dL (0.0-1.0); C-REACTIVE PROTEIN 4.7 mg/dL (0.0-0.9); CALCIUM 8.9 mg/dL (8.4-10.2); CREATININE, serum 0.96 mg/dL (0.66-1.25); POTASSIUM 4.1 mmol/L (3.4-5.0); TOTAL PROTEIN 6.2 gm/dL (6.4-8.2)
== END 2017-06-07 22:30 | disposition short-term general hospital (02) ==
LOC: COL.ER 20:20
PROVIDERS: Emergency Medicine
DX: L03.114 Cellulitis of left upper limb (principal); F17.210 Nicotine dependence, cigarettes, uncomplicated; W55.01XA Bitten by cat, initial encounter
CPT/HCPCS: J0295; J2270; J2405; J2550; J7030

== ENCOUNTER 2017-07-14 01:07 | Emergency (ER) | payer OTHER ==
[~2017-07-14] VITALS: Ht 193 cm; Wt 86.4 kg
[2017-07-14 01:13] VITALS: TEMP 98.4
[2017-07-14 02:25] LABS: ALANINE AMINOTRANSFERASE 28 U/L (21-72); ALKALINE PHOSPHATASE 59 U/L (50-136); ANION GAP 8 mmol/L (7-16); AST,SGOT 16 U/L (15-37); BILIRUBIN,TOTAL < 0.1 mg/dL (0.0-1.0); BLOOD UREA NITROGEN 6 mg/dL (9-20); CALCIUM 8.7 mg/dL (8.4-10.2); CARBON DIOXIDE 26 mmol/L (22-30); CHLORIDE 107 mmol/L (98-107); CREATININE, serum 0.89 mg/dL (0.66-1.25); GLUCOSE 89 mg/dL (74-106); LIPASE 30 U/L (23-300); MAGNESIUM 1.5 mg/dL (1.6-2.3); PHOSPHOROUS 3.3 mg/dL (2.5-4.5); POTASSIUM 3.4 mmol/L (3.4-5.0); SODIUM 141 mmol/L (137-145); TOTAL PROTEIN 5.8 gm/dL (6.4-8.2)
[2017-07-14] MEDS ORDERED: DESYREL 100MG100 MG PO (04:27)
[2017-07-14 05:16] VITALS: BP 112/75; PULSE 68
== END 2017-07-14 05:19 | disposition home or self-care (01) ==
LOC: COL.ER 01:07
PROVIDERS: Emergency Medicine
DX: G43.909 Migraine, unspecified, not intractable, without status migrainosus (principal)
CPT/HCPCS: J1200; J1630; J1885; J2550; J7030

== ENCOUNTER 2017-07-26 21:42 | Emergency (ER) | payer OTHER ==
[~2017-07-26] VITALS: Ht 193 cm; Wt 81.8 kg
[2017-07-26 21:48] VITALS: BP 109/65
[2017-07-26 23:33] VITALS: PULSE 65
== END 2017-07-26 23:33 | disposition home or self-care (01) ==
LOC: COL.ER 21:42
DX: S00.03XA Contusion of scalp, initial encounter (principal); M25.551 Pain in right hip; R40.2412 Glasgow coma scale score 13-15, at arrival to emergency department; F17.290 Nicotine dependence, other tobacco product, uncomplicated; W01.198A Fall on same level from slipping, tripping and stumbling with subsequent striking against other object, initial encounter; Y92.002 Bathroom of unspecified non-institutional (private) residence as the place of occurrence of the external cause
CPT/HCPCS: J1885

== ENCOUNTER 2017-09-04 21:04 | Emergency (ER) | payer OTHER ==
[~2017-09-04] VITALS: Ht 193 cm; Wt 86.6 kg
[2017-09-04 21:12] VITALS: BP 118/67; TEMP 98.7
[2017-09-04] MEDS ORDERED: NORCO 325 MG-51 TAB PO (22:55)
[2017-09-04 23:19] VITALS: PULSE 70
== END 2017-09-04 23:19 | disposition home or self-care (01) ==
LOC: COL.ER 21:04
DX: S49.92XA Unspecified injury of left shoulder and upper arm, initial encounter (principal); F17.210 Nicotine dependence, cigarettes, uncomplicated; W51.XXXA Accidental striking against or bumped into by another person, initial encounter; Y92.009 Unspecified place in unspecified non-institutional (private) residence as the place of occurrence of the external cause; Y93.72 Activity, wrestling

== ENCOUNTER → 2018-01-21 | Outpatient (CLI) | payer OTHER | LOC: COL.RAD 13:30 | DX: M19.012 Primary osteoarthritis, left shoulder (principal); S46.812A Strain of other muscles, fascia and tendons at shoulder and upper arm level, left arm, initial encounter; Z87.828 Personal history of other (healed) physical injury and trauma | CPT/HCPCS: A9585; Q9967 ==

== ENCOUNTER → 2018-02-15 | Outpatient (CLI) | payer OTHER | LOC: ZCOL.LAB 18:17 | DX: Z01.812 Encounter for preprocedural laboratory examination (principal); Z86.14 Personal history of Methicillin resistant Staphylococcus aureus infection ==

== ENCOUNTER 2018-05-10 21:27 | Emergency (ER) | payer OTHER ==
[~2018-05-10] VITALS: Ht 193 cm; Wt 90.9 kg
[2018-05-10 21:36] VITALS: BP 112/61; TEMP 98.2
[2018-05-10] MEDS ORDERED: ESTRACE2 MG PO (22:18)
[2018-05-10] MEDS ORDERED: PERCOCET 325 MG1 TA2 PO (22:20)
[2018-05-10 23:32] VITALS: PULSE 77
== END 2018-05-10 23:32 | disposition home or self-care (01) ==
LOC: COL.ER 21:27
DX: M25.512 Pain in left shoulder (principal); G89.18 Other acute postprocedural pain; F17.210 Nicotine dependence, cigarettes, uncomplicated; Z79.1 Long term (current) use of non-steroidal anti-inflammatories (NSAID); Z79.899 Other long term (current) drug therapy; Z98.890 Other specified postprocedural states
CPT/HCPCS: J1170; J2550

== ENCOUNTER 2018-07-28 20:09 | Emergency (ER) | payer OTHER ==
[~2018-07-28] VITALS: Ht 193 cm; Wt 90.9 kg
[~2018-07-28 20:09] MED LIST changes: +ESTRACE2 MG PO
[2018-07-28 20:14] VITALS: BP 123/88; TEMP 97.3
[2018-07-28] MEDS ORDERED: PROMETRIUM200 M1 (21:41)
[2018-07-28 22:28] VITALS: PULSE 64
== END 2018-07-28 22:25 | disposition home or self-care (01) ==
LOC: COL.ER 20:09
DX: S39.011A Strain of muscle, fascia and tendon of abdomen, initial encounter (principal); Z98.890 Other specified postprocedural states; X50.0XXA Overexertion from strenuous movement or load, initial encounter; Y93.H9 Activity, other involving exterior property and land maintenance, building and construction
CPT/HCPCS: J1885

== ENCOUNTER 2018-07-30 23:27 | Emergency (ER) | payer OTHER ==
[~2018-07-30] VITALS: Ht 193 cm; Wt 90.9 kg
[~2018-07-30 23:27] MED LIST changes: +PROMETRIUM200 M1
[2018-07-30 23:32] VITALS: TEMP 98
[2018-07-31 00:05] LABS: BASO # 0.1 (0.0-0.2); BASO % 0.6 % (0.0-2.0); EOS # 0.5 (0.0-0.7); EOS % 5.1 % (0-4.0); GRAN # 3.7 (1.4-6.5); GRAN % 38.5 % (42.2-75.2); HEMATOCRIT 34.8 % (42.0-52.0); HEMOGLOBIN 12.2 g/dl (13.5-18.0); LYMPH # 4.6 (1.2-3.4); LYMPH % 48.4 % (20.0-51.0); MEAN CELL VOLUME 97 fl (80.0-100.0); MEAN CORPUSCULAR HEMOGLOBIN 34 pg (27.0-31.0); MEAN CORPUSCULAR HGB CONC 35 g/dl (33.0-37.0); MEAN PLATELET VOLUME 9.7 fl (7.4-10.4); MONO # 0.7 (0.1-0.6); MONO % 7.2 % (1.7-9.3); PLATELET COUNT 258 K/mm3 (130-400); RED BLOOD COUNT 3.59 M/mm3 (4.20-5.60); REDCELL DISTRIBUTION WIDTH-CV 12.1 % (11.5-14.5)
[2018-07-31 00:19] LABS: ALBUMIN 3.4 gm/dL (3.5-5.0); BILIRUBIN,TOTAL 0.4 mg/dL (0.0-1.0); C-REACTIVE PROTEIN 0.5 mg/dL (0.0-0.9); CALCIUM 8.9 mg/dL (8.4-10.2); CREATININE, serum 1.08 (0.66-1.25); TOTAL PROTEIN 6.2 gm/dL (6.4-8.2)
[2018-07-31 01:33] LABS: COLLECTION METHOD CLEAN CATCH
[2018-07-31 01:42] LABS: PH 8 (5-8); SQUAMOUS EPITHELIAL 0-2 /hpf; URINE APPEARANCE Clear; URINE BACTERIA None Seen /hpf; URINE BILIRUBIN Negative (NEGATIVE); URINE BLOOD Negative (NEGATIVE); URINE COLOR Yellow; URINE GLUCOSE Negative (NEGATIVE); URINE KETONE Negative (NEGATIVE); URINE LEUKOCYTE ESTERASE Negative (NEGATIVE); URINE NITRATE Negative (NEGATIVE); URINE PROTEIN(semi-quant) Negative (NEGATIVE); URINE RBC 0-2 /hpf; URINE UROBILINOGEN Negative (NEGATIVE)
[2018-07-31] MEDS ORDERED: REGLAN 10MG10 MG/TAB PO (02:14)
[2018-07-31 02:59] VITALS: BP 95/64; PULSE 70
== END 2018-07-31 03:00 | disposition home or self-care (01) ==
LOC: COL.ER 23:27
PROVIDERS: Physician Assistant
DX: K52.9 Noninfective gastroenteritis and colitis, unspecified (principal); K56.7 Ileus, unspecified; Z98.890 Other specified postprocedural states; Z90.49 Acquired absence of other specified parts of digestive tract
CPT/HCPCS: J1885; J2550; J2765; J7030; Q9967

== ENCOUNTER → 2018-08-22 | Outpatient (CLI) | payer OTHER ==
[~2018-08-22] MED LIST changes: +REGLAN 10MG10 MG/TAB PO
== END ==
LOC: MC.RAD 10:57
DX: N63.20 Unspecified lump in the left breast, unspecified quadrant (principal)

== ENCOUNTER 2018-11-09 17:22 | Emergency (ER) | payer OTHER ==
[~2018-11-09] VITALS: Ht 193 cm; Wt 90.9 kg
[2018-11-09 17:55] VITALS: TEMP 97.9
[2018-11-09] MEDS ORDERED: NEXIUM 40MG40 MG PO (17:55)
[2018-11-09 18:37] LABS: BASO % 0.1 % (0.0-2.0); EOS % 0.2 % (0-4.0); GRAN # 11.6 (1.4-6.5); GRAN % 65.6 % (42.2-75.2); HEMATOCRIT 37.4 % (42.0-52.0); LYMPH # 4.9 (1.2-3.4); LYMPH % 27.9 % (20.0-51.0); MEAN CELL VOLUME 98 fl (80.0-100.0); MEAN CORPUSCULAR HEMOGLOBIN 34 pg (27.0-31.0); MEAN CORPUSCULAR HGB CONC 35 g/dl (33.0-37.0); MEAN PLATELET VOLUME 9.7 fl (7.4-10.4); MONO % 5.9 % (1.7-9.3); PLATELET COUNT 283 K/mm3 (130-400); RED BLOOD COUNT 3.83 M/mm3 (4.20-5.60); REDCELL DISTRIBUTION WIDTH-CV 12.1 % (11.5-14.5)
[2018-11-09 18:48] LABS: ALANINE AMINOTRANSFERASE < 6 U/L (21-72); ALBUMIN 3.7 gm/dL (3.5-5.0); ALKALINE PHOSPHATASE 56 U/L (50-136); ANION GAP 7 mmol/L (7-16); AST,SGOT 19 U/L (15-37); BILIRUBIN,TOTAL 0.4 mg/dL (0.0-1.0); BLOOD UREA NITROGEN 9 mg/dL (9-20); CALCIUM 9.5 mg/dL (8.4-10.2); CARBON DIOXIDE 27 mmol/L (22-30); CHLORIDE 104 mmol/L (98-107); CREATININE, serum 1.07 (0.66-1.25); GLUCOSE 87 mg/dL (74-106); POTASSIUM 3.9 mmol/L (3.4-5.0); SODIUM 137 mmol/L (137-145); TOTAL PROTEIN 6.6 gm/dL (6.4-8.2)
[2018-11-09 23:32] VITALS: BP 124/72; PULSE 74
== END 2018-11-10 00:08 | disposition short-term general hospital (02) ==
LOC: COL.ER 17:22
PROVIDERS: Emergency Medicine
DX: R07.89 Other chest pain (principal); R10.9 Unspecified abdominal pain; G89.18 Other acute postprocedural pain; F17.290 Nicotine dependence, other tobacco product, uncomplicated; G43.909 Migraine, unspecified, not intractable, without status migrainosus; K21.9 Gastro-esophageal reflux disease without esophagitis; Z88.5 Allergy status to narcotic agent
CPT/HCPCS: J2270; J7030; Q9967

== ENCOUNTER 2018-11-28 20:59 | Emergency (ER) | payer OTHER ==
[~2018-11-28] VITALS: Ht 193 cm; Wt 87.7 kg
[~2018-11-28 20:59] MED LIST changes: +NEXIUM 40MG40 MG PO
[2018-11-28 21:09] VITALS: BP 111/67; TEMP 98
[2018-11-28] MEDS ORDERED: AMOXICILLIN 8751 TAB PO (21:28)
[2018-11-28 23:00] VITALS: PULSE 65
== END 2018-11-28 23:00 | disposition home or self-care (01) ==
LOC: COL.ER 20:59
DX: S61.451A Open bite of right hand, initial encounter (principal); W55.01XA Bitten by cat, initial encounter; Y92.009 Unspecified place in unspecified non-institutional (private) residence as the place of occurrence of the external cause
CPT/HCPCS: 90375

== ENCOUNTER 2018-12-01 16:17 | Emergency (ER) | payer OTHER ==
[~2018-12-01] VITALS: Ht 193 cm; Wt 88.2 kg
[2018-12-01 16:20] VITALS: BP 146/78; PULSE 70; TEMP 98.1
== END 2018-12-01 16:54 | disposition home or self-care (01) ==
LOC: COL.ER 16:17
DX: R19.7 Diarrhea, unspecified (principal); T36.0X5A Adverse effect of penicillins, initial encounter; T36.1X5A Adverse effect of cephalosporins and other beta-lactam antibiotics, initial encounter

== ENCOUNTER 2018-12-13 13:42 | Outpatient (RCR) | payer OTHER ==
[2018-12-13 13:56] VITALS: BP 87/54; PULSE 73; TEMP 99
== END 2019-03-01 | disposition still patient (30) ==
LOC: COL.ER
DX: Z23 Encounter for immunization (principal); Z20.3 Contact with and (suspected) exposure to rabies

== ENCOUNTER 2019-02-03 21:26 | Emergency (ER) | payer OTHER ==
[~2019-02-03] VITALS: Ht 193 cm; Wt 86.4 kg
[2019-02-03 21:31] VITALS: BP 100/58; TEMP 97.7
[2019-02-03 22:19] LABS: HEMATOCRIT 37.7 % (42.0-52.0); HEMOGLOBIN 13.2 g/dl (13.5-18.0); MEAN CELL VOLUME 97 fl (80.0-100.0); MEAN CORPUSCULAR HEMOGLOBIN 34 pg (27.0-31.0); MEAN CORPUSCULAR HGB CONC 35 g/dl (33.0-37.0); MEAN PLATELET VOLUME 9.4 fl (7.4-10.4); PLATELET COUNT 274 K/mm3 (130-400); RED BLOOD COUNT 3.89 M/mm3 (4.20-5.60)
[2019-02-03 22:33] LABS: ALANINE AMINOTRANSFERASE 10 U/L (21-72); ALBUMIN 3.7 gm/dL (3.5-5.0); ALKALINE PHOSPHATASE 63 U/L (50-136); ANION GAP 5 mmol/L (7-16); AST,SGOT 16 U/L (15-37); BILIRUBIN,TOTAL 0.3 mg/dL (0.0-1.0); BLOOD UREA NITROGEN 12 mg/dL (9-20); CALCIUM 8.9 mg/dL (8.4-10.2); CARBON DIOXIDE 28 mmol/L (22-30); CHLORIDE 101 mmol/L (98-107); GLUCOSE 87 mg/dL (74-106); LIPASE 93 U/L (23-300); POTASSIUM 4.2 mmol/L (3.4-5.0); SODIUM 133 mmol/L (137-145); TOTAL PROTEIN 6.6 gm/dL (6.4-8.2)
[2019-02-03 22:34] LABS: C-REACTIVE PROTEIN < 0.5 mg/dL (0.0-0.9)
[2019-02-03 22:42] LABS: BAND 1 % (0-10); EOSINOPHIL 2 % (0-4); LYMPHOCYTE 43 % (20.0-51.0); NEUTROPHILS 49 % (42.0-75.2)
[2019-02-03 22:43] LABS: PLATELET ESTIMATE NORMAL (NORMAL)
[2019-02-03 23:53] LABS: COLLECTION METHOD CLEAN CATCH
[2019-02-04 00:02] LABS: MUCOUS Present /lpf; PH 5 (5-8); SQUAMOUS EPITHELIAL 0-2 /hpf; URINE APPEARANCE Clear; URINE BACTERIA None Seen /hpf; URINE BILIRUBIN Negative (NEGATIVE); URINE BLOOD Negative (NEGATIVE); URINE COLOR Yellow; URINE GLUCOSE Negative (NEGATIVE); URINE KETONE Negative (NEGATIVE); URINE LEUKOCYTE ESTERASE Negative (NEGATIVE); URINE NITRATE Negative (NEGATIVE); URINE PROTEIN(semi-quant) Negative (NEGATIVE); URINE RBC 0-2 /hpf; URINE UROBILINOGEN Negative (NEGATIVE)
[2019-02-04 00:16] VITALS: PULSE 74
== END 2019-02-04 00:14 | disposition home or self-care (01) ==
LOC: COL.ER 21:26
PROVIDERS: Emergency Medicine
DX: R10.31 Right lower quadrant pain (principal); K21.9 Gastro-esophageal reflux disease without esophagitis; F17.210 Nicotine dependence, cigarettes, uncomplicated; Z90.89 Acquired absence of other organs; Z98.890 Other specified postprocedural states
CPT/HCPCS: J1170; J2550; J7030; Q9967

== ENCOUNTER → 2019-04-11 | Outpatient (CLI) | payer OTHER | LOC: COL.RAD 13:56 | DX: S46.111A Strain of muscle, fascia and tendon of long head of biceps, right arm, initial encounter (principal); Z98.890 Other specified postprocedural states; M75.91 Shoulder lesion, unspecified, right shoulder | CPT/HCPCS: A9585; Q9967 ==

== ENCOUNTER 2019-09-03 16:03 | Emergency (ER) | payer OTHER ==
[~2019-09-03] VITALS: Ht 193 cm; Wt 86.4 kg
[~2019-09-03 16:03] MED LIST changes: +XARELTO15 MG PO
[2019-09-03 16:10] VITALS: TEMP 99.1
[2019-09-03 16:59] LABS: BASO # 0.1 (0.0-0.2); BASO % 0.7 % (0.0-2.0); EOS # 0.2 (0.0-0.7); EOS % 2.3 % (0-4.0); GRAN # 3.8 (1.4-6.5); GRAN % 47.4 % (42.2-75.2); HEMOGLOBIN 12.1 g/dl (13.5-18.0); LYMPH # 3.4 (1.2-3.4); LYMPH % 42.1 % (20.0-51.0); MEAN CELL VOLUME 99 fl (80.0-100.0); MEAN CORPUSCULAR HEMOGLOBIN 34 pg (27.0-31.0); MEAN CORPUSCULAR HGB CONC 34 g/dl (33.0-37.0); MEAN PLATELET VOLUME 9.7 fl (7.4-10.4); MONO # 0.6 (0.1-0.6); MONO % 7.4 % (1.7-9.3); PLATELET COUNT 252 K/mm3 (130-400); RED BLOOD COUNT 3.58 M/mm3 (4.20-5.60); REDCELL DISTRIBUTION WIDTH-CV 12.1 % (11.5-14.5)
[2019-09-03 17:03] LABS: HEMATOCRIT 35.5 % (42.0-52.0)
[2019-09-03 17:04] LABS: INR 1.4 (0.8-3.0); PROTHROMBIN TIME 15.9 SECONDS (9.7-12.8)
[2019-09-03 17:10] LABS: CALCIUM 8.6 mg/dL (8.4-10.2); CREATININE, serum 0.7 (0.66-1.25); POTASSIUM 3.4 mmol/L (3.4-5.0)
[2019-09-03 17:27] LABS: PROLACTIN 16.5 ng/mL (3.7-17.9)
[2019-09-03] MEDS ORDERED: XARELTO20 MG PO (17:57)
[2019-09-03 18:58] VITALS: BP 127/76; PULSE 65
== END 2019-09-03 19:05 | disposition home or self-care (01) ==
LOC: COL.ER 16:03
PROVIDERS: Emergency Medicine
DX: S40.012A Contusion of left shoulder, initial encounter (principal); S00.93XA Contusion of unspecified part of head, initial encounter; K21.9 Gastro-esophageal reflux disease without esophagitis; G43.909 Migraine, unspecified, not intractable, without status migrainosus; I82.409 Acute embolism and thrombosis of unspecified deep veins of unspecified lower extremity; Z79.01 Long term (current) use of anticoagulants; Z85.830 Personal history of malignant neoplasm of bone; Z90.49 Acquired absence of other specified parts of digestive tract; Z98.890 Other specified postprocedural states; W01.198A Fall on same level from slipping, tripping and stumbling with subsequent striking against other object, initial encounter; F17.210 Nicotine dependence, cigarettes, uncomplicated
CPT/HCPCS: J7030

== ENCOUNTER 2019-09-06 16:22 | Emergency (ER) | payer OTHER ==
[~2019-09-06 16:22] MED LIST changes: +XARELTO20 MG PO
[2019-09-06 16:29] VITALS: TEMP 98.4
[2019-09-06] MEDS ORDERED: PHENERGAN 25 TA25 MG PO (17:16)
[2019-09-06 17:28] LABS: BASO # 0.1 (0.0-0.2); BASO % 0.6 % (0.0-2.0); EOS # 0.3 (0.0-0.7); EOS % 2.7 % (0-4.0); GRAN # 4.9 (1.4-6.5); GRAN % 51.7 % (42.2-75.2); HEMATOCRIT 37.2 % (42.0-52.0); HEMOGLOBIN 12.9 g/dl (13.5-18.0); LYMPH # 3.5 (1.2-3.4); LYMPH % 37.5 % (20.0-51.0); MEAN CELL VOLUME 100 fl (80.0-100.0); MEAN CORPUSCULAR HEMOGLOBIN 35 pg (27.0-31.0); MEAN CORPUSCULAR HGB CONC 35 g/dl (33.0-37.0); MEAN PLATELET VOLUME 9.8 fl (7.4-10.4); MONO # 0.7 (0.1-0.6); MONO % 7.2 % (1.7-9.3); PLATELET COUNT 254 K/mm3 (130-400); RED BLOOD COUNT 3.74 M/mm3 (4.20-5.60); REDCELL DISTRIBUTION WIDTH-CV 11.9 % (11.5-14.5)
[2019-09-06 17:37] LABS: ALBUMIN 3.1 gm/dL (3.5-5.0); BILIRUBIN,TOTAL 0.4 mg/dL (0.0-1.0); CALCIUM 8.8 mg/dL (8.4-10.2); CREATININE, serum 0.84 (0.66-1.25); POTASSIUM 3.2 mmol/L (3.4-5.0)
[2019-09-06 19:00] VITALS: BP 117/61; PULSE 71
== END 2019-09-06 19:22 | disposition home or self-care (01) ==
LOC: COL.ER 16:22
PROVIDERS: Emergency Medicine
DX: F07.81 Postconcussional syndrome (principal); Z88.6 Allergy status to analgesic agent; Z79.01 Long term (current) use of anticoagulants; Z87.820 Personal history of traumatic brain injury
CPT/HCPCS: J0780; J1170; J7030

== ENCOUNTER 2020-02-19 20:07 | Emergency (ER) | payer OTHER ==
[~2020-02-19] VITALS: Ht 193 cm; Wt 84.1 kg
[2020-02-19 20:15] VITALS: TEMP 97.4
[2020-02-19 21:20] LABS: BASO # 0.1 (0.0-0.2); BASO % 0.4 % (0.0-2.0); EOS # 0.3 (0.0-0.7); EOS % 2.1 % (0-4.0); GRAN # 7.8 (1.4-6.5); GRAN % 56.9 % (42.2-75.2); HEMATOCRIT 37.3 % (42.0-52.0); HEMOGLOBIN 12.9 g/dl (13.5-18.0); LYMPH # 4.6 (1.2-3.4); LYMPH % 33.6 % (20.0-51.0); MEAN CELL VOLUME 98 fl (80.0-100.0); MEAN CORPUSCULAR HEMOGLOBIN 34 pg (27.0-31.0); MEAN CORPUSCULAR HGB CONC 35 g/dl (33.0-37.0); MEAN PLATELET VOLUME 9.9 fl (7.4-10.4); MONO # 0.9 (0.1-0.6); MONO % 6.8 % (1.7-9.3); PLATELET COUNT 338 K/mm3 (130-400); REDCELL DISTRIBUTION WIDTH-CV 12.3 % (11.5-14.5)
[2020-02-19 21:54] LABS: ALBUMIN 2.9 gm/dL (3.5-5.0); BILIRUBIN,TOTAL 0.2 mg/dL (0.0-1.0); CALCIUM 8.4 mg/dL (8.4-10.2); CREATININE, serum 0.9 (0.66-1.25); MAGNESIUM 1.8 mg/dL (1.6-2.3); POTASSIUM 3.2 mmol/L (3.4-5.0); TOTAL PROTEIN 5.5 gm/dL (6.4-8.2)
[2020-02-20] MEDS ORDERED: BACTRIM DS 8001 TAB PO (01:52)
[2020-02-20 02:15] VITALS: BP 121/81; PULSE 70
== END 2020-02-20 02:17 | disposition home or self-care (01) ==
LOC: COL.ER 20:07
PROVIDERS: Emergency Medicine
DX: L03.312 Cellulitis of back [any part except buttock and flank] (principal); F17.210 Nicotine dependence, cigarettes, uncomplicated; Z20.828 Contact with and (suspected) exposure to other viral communicable diseases; Z88.6 Allergy status to analgesic agent; Z88.8 Allergy status to other drugs, medicaments and biological substances; Z79.01 Long term (current) use of anticoagulants
CPT/HCPCS: J7030; Q9967

== ENCOUNTER 2020-03-26 17:23 | Emergency (ER) | payer OTHER ==
[~2020-03-26] VITALS: Ht 193 cm; Wt 84.1 kg
[~2020-03-26 17:23] MED LIST changes: +BACTRIM DS 8001 TAB PO
[2020-03-26 17:43] VITALS: BP 118/76; TEMP 99.1
[2020-03-26 18:31] LABS: BASO # 0.1 (0.0-0.2); BASO % 0.7 % (0.0-2.0); EOS # 0.3 (0.0-0.7); GRAN # 4.3 (1.4-6.5); GRAN % 49.5 % (42.2-75.2); HEMATOCRIT 33.2 % (42.0-52.0); HEMOGLOBIN 11.6 g/dl (13.5-18.0); LYMPH # 3.5 (1.2-3.4); LYMPH % 40.3 % (20.0-51.0); MEAN CELL VOLUME 97 fl (80.0-100.0); MEAN CORPUSCULAR HEMOGLOBIN 34 pg (27.0-31.0); MEAN CORPUSCULAR HGB CONC 35 g/dl (33.0-37.0); MEAN PLATELET VOLUME 9.3 fl (7.4-10.4); MONO # 0.6 (0.1-0.6); MONO % 6.4 % (1.7-9.3); PLATELET COUNT 294 K/mm3 (130-400); RED BLOOD COUNT 3.42 M/mm3 (4.20-5.60); REDCELL DISTRIBUTION WIDTH-CV 11.8 % (11.5-14.5)
[2020-03-26 18:44] LABS: ALANINE AMINOTRANSFERASE 11 U/L (4-49); ALBUMIN 3.1 gm/dL (3.5-5.0); ALKALINE PHOSPHATASE 66 U/L (50-136); ANION GAP 3 mmol/L (7-16); AST,SGOT 21 U/L (15-37); BILIRUBIN,TOTAL 0.3 mg/dL (0.0-1.0); BLOOD UREA NITROGEN 9 mg/dL (9-20); CALCIUM 8.6 mg/dL (8.4-10.2); CARBON DIOXIDE 26 mmol/L (22-30); CHLORIDE 105 mmol/L (98-107); CREATININE, serum 0.93 (0.66-1.25); GLUCOSE 91 mg/dL (74-106); POTASSIUM 3.9 mmol/L (3.4-5.0); SODIUM 134 mmol/L (137-145)
[2020-03-26 18:47] LABS: C-REACTIVE PROTEIN < 0.5 mg/dL (0.0-0.9)
[2020-03-26 19:09] LABS: COLLECTION METHOD CLEAN CATCH
[2020-03-26 19:15] LABS: PH 5 (5-8); URINE APPEARANCE Hazy; URINE BACTERIA None Seen /hpf; URINE BILIRUBIN Negative (NEGATIVE); URINE BLOOD Negative (NEGATIVE); URINE COLOR Yellow; URINE GLUCOSE Negative (NEGATIVE); URINE KETONE Negative (NEGATIVE); URINE LEUKOCYTE ESTERASE Negative (NEGATIVE); URINE NITRATE Negative (NEGATIVE); URINE PROTEIN(semi-quant) Negative (NEGATIVE); URINE RBC 0-2 /hpf; URINE UROBILINOGEN Negative (NEGATIVE)
[2020-03-26] MEDS ORDERED: ZITHROMAX Z PA250 MG PO (19:17)
[2020-03-26 19:26] VITALS: PULSE 89
== END 2020-03-26 19:29 | disposition home or self-care (01) ==
LOC: COL.ER 17:23
PROVIDERS: Nurse Practitioner
DX: J40 Bronchitis, not specified as acute or chronic (principal); F17.200 Nicotine dependence, unspecified, uncomplicated; Z20.822 Contact with and (suspected) exposure to COVID-19; Z85.831 Personal history of malignant neoplasm of soft tissue; Z88.5 Allergy status to narcotic agent; Z88.8 Allergy status to other drugs, medicaments and biological substances; Z79.01 Long term (current) use of anticoagulants
CPT/HCPCS: J1885; J7030

== ENCOUNTER 2020-04-10 21:14 | Emergency (ER) | payer OTHER ==
[~2020-04-10] VITALS: Ht 193 cm; Wt 81.8 kg
[~2020-04-10 21:14] MED LIST changes: +ZITHROMAX Z PA250 MG PO
[2020-04-10 21:20] VITALS: BP 110/72; TEMP 97.9
[2020-04-10 21:54] LABS: STREP SCREEN NEGATIVE
[2020-04-10] MEDS ORDERED: LIDOCAINE HCL100 M1 MM (22:04)
[2020-04-10 22:10] VITALS: PULSE 88
== END 2020-04-10 22:11 | disposition home or self-care (01) ==
LOC: COL.ER 21:14
PROVIDERS: Physician Assistant
DX: J02.9 Acute pharyngitis, unspecified (principal); F17.200 Nicotine dependence, unspecified, uncomplicated; Z90.89 Acquired absence of other organs; Z90.49 Acquired absence of other specified parts of digestive tract; Z88.5 Allergy status to narcotic agent; Z88.8 Allergy status to other drugs, medicaments and biological substances; Z79.01 Long term (current) use of anticoagulants

== ENCOUNTER → 2020-04-23 | Outpatient (CLI) | payer OTHER ==
[~2020-04-23] MED LIST changes: +LIDOCAINE HCL100 M1 MM
== END ==
LOC: COL.RAD 06:46
DX: G43.719 Chronic migraine without aura, intractable, without status migrainosus (principal); S06.9X1S Unspecified intracranial injury with loss of consciousness of 30 minutes or less, sequela; M47.812 Spondylosis without myelopathy or radiculopathy, cervical region; M48.02 Spinal stenosis, cervical region